=== PATIENT | male | born 1975 | race African-American/Black ===

== ENCOUNTER 2024-03-21 10:54 | Emergency (ER) | payer OTHER, SELFPAY ==
[2024-03-21] VITALS (10 sets, daily range): BP systolic 119–187; BP diastolic 78–121
--- NOTE | 2024-03-21 11:27 | ED.GENMED ---
History of Present Illness
General
Chief Complaint: Blood Pressure Problem
Source: patient
Exam Limitations: none
Time Seen by Provider: 03/21/24 11:27
Nursing documentation reviewed up to this point in time: agreed with
Travel History
Have you had any contact with someone who has COVID-19?: No
Do you have any symptoms of coronavirus? Fever > 100 degrees, chills, cough, shortness of breath, sore throat, loss of taste or smell, muscle aches, or headache?: No
History of Present Illness
History of Present Illness:
Patient is a 40-year-old male with history of ND with 2 years ago at [facility] hypertension presents to the ER for evaluation of elevated blood pressure. He reports for the past several days his blood pressure has been elevated around 170s
over 100s. He was seen at [facility] on 19 March 2 days ago and had a CAT scan and labs. He received labetalol and hydralazine while in the emergency department. He reports still his blood pressure has been elevated and he has a headache.
He normally does not get headaches. He is on carvedilol atorvastatin list and has been taking these as directed. Did call his big data developer office (DR Manoj Anand) and spoke to the nurse who instructed him to increase his carvedilol from 12.5 mg to
25 mg per he did this yesterday but did not feel well after doing that. He continues to have high blood pressure and headache. He denies any vision changes , denies any chest pain shortness of breath.
Past History
Past History
ED Past Medical History: None
ED Past Surgical History: None
Social History
Tobacco: Non-smoker
Alcohol: None
Drug: None
Personal: Single
Living: with family
Review of Systems
Review of Systems
Allergies reviewed?: Yes
All Other Systems: ROS reviewed and negative except as documented in HPI and ROS
Constitutional: Reports no symptoms; Denies fever, fatigue or chills
EENT: Reports no symptoms
Respiratory: Reports no symptoms; Denies trouble breathing
Cardiac: Denies no symptoms, chest pain, diaphoresis, palpitations or syncope
ABD/GI: Reports no symptoms
Musculoskeletal: Reports no symptoms
Skin: Reports no symptoms
Neurological: Reports headache; Denies dizzy, weakness or numbness
Psychiatric: Reports no symptoms
Phy Exam
General Physical Exam
General Presentation: no apparent distress
General age: appears stated age
General Skin: warm and dry
General Habitus: normal
General Mental: alert
General Hydration: appears well hydrated
Cardiovascular Exam
Cardiovascular Exam: regular rate/rhythm, no murmur and normal peripheral pulses
Pulmonary Exam
Pulmonary Exam: lungs clear and no respiratory distress
Neurological Exam
Neurological Exam: alert and oriented x3
Musculoskeletal Exam
Musculoskeletal Exam: full ROM
Skin Exam
Skin Exam: normal color and warm/dry
Psychiatric Exam
Psychiatric Exam: normal mood/affect
Course
Orders/Labs/Results
Orders:
Orders
03/21/24 11:02
EKG [Electrocardiogram (*1)] Urgent
Reason for Study: Hypertension, Benign
EKG- Treatment ONCE
03/21/24 12:40
Cardiac Monitoring- Treatment ONCE
IV Insert/Care/Rem.- Treatment PRN
03/21/24 12:44
Complete Blood Count/With Diff Urgent
Comprehensive Metabolic Panel Urgent
03/21/24 13:04
Ketorolac [Toradol] 15 mg IV NOW STA
Abnormal Lab Results
03/21/24
12:44
RBC 4.53 L 10^6/uL
(4.70-6.10)
Chloride 108 H mmol/L
(98-107)
03/21/24 12:44
03/21/24 12:44
Vital Signs
Initial and Last Documented VS:
Initial Vital Signs
Temp Pulse Resp BP Pulse Ox
98.4 F 81 18 163/104 98
03/21/24 10:59 03/21/24 10:59 03/21/24 10:59 03/21/24 10:59 03/21/24 10:59
Last Documented Vital Signs
Temp Pulse Resp BP Pulse Ox
98.4 F 73 16 187/121 99
03/21/24 10:59 03/21/24 14:45 03/21/24 14:45 03/21/24 14:00 03/21/24 11:52
MDM/Problems Addressed
Differential Diagnosis Includes:
not limited to hypertension, anxiety
MDM/Problems Addressed:
I spoke with DR Anand his big data developer. He was aware that patient was recently in [facility] ED and had full workup. He had normal blood work and normal CAT scan of the head. His carvedilol was increased from 12.5 mg to 25 mg daily
while in [place]. He has been taking this increased dose Dr Anand does feel that this patient has a lot of stress and anxiety also which is causing his elevated blood pressure and patient stressing a resolving blood pressure. He does
recommend just to have patient continue on his new increased dose of carvedilol and the let that kick in.
I had multiple long discussions with patient. He admits to being very anxious over his blood pressure. He is also anxious over his diet because he is not sure what to eat. He admits to eating very bad foods such as fried chicken and drinks ice
tea throughout the day but does not drink water. He is very anxious however no acute distress his monitor here several times and is constant looking at the blood pressure monitor. last BP 153/104.
As discussed with his big data developer will DC home with instructions to continue taking the increased dose of his carvedilol along with his other medicines I did recommend that patient however closely look at his diet and follow a low-salt low-fat
diet. He tells me he is going to try to get an appointment for rn dermatology. He is to follow-up with big data developer.
Acute Exacerbation and/or Progression of Chronic Illness:
htn cad,mi
*EKG
Interpreted by ED Provider?: Yes
Interpretation: abnormal
Heart Rate: 74
Rate: normal
Rhythm: sinus
Ischemia: non-specific ST changes
*Critical Care Note
Total Time (30-74mins, 75-104mins- exclusive of procedures): Not Applicable
ED Attending Note
-
Portions of this chart may have been created with voice recognition software.� Occasional wrong word or��sound alike� substitutions may have occurred due to the inherent limitations of voice recognition software.
Discharge Plan
Departure
Patient Disposition: Home (Routine Discharge)
Date of Disposition: 03/21/24
Time of Disposition: 15:28
Patient with high blood pressure during this ER visit?: Yes
Condition: Fair
Covid-19: Not Applicable
Discharge Problem:
elevated blood pressure, Headache
Instructions: High Blood Pressure (DC), Headache, Adult ED, Low-sodium diet, Low-fat diet, BLOOD PRESSURE
Prescriptions:
No Action
atorvastatin [Lipitor] 80 mg Tablet
80 mg PO DAILY
acetaminophen [Tylenol] 325 mg Tablet
650 mg PO Q4HPRN PRN (Reason: headaches)
carvedilol [Coreg] 12.5 mg Tablet
12.5 mg PO BID
lisinopril 20 mg Tablet
20 mg PO BID
aspirin 81 mg Tablet,Delayed Release (Dr/Ec)
81 mg PO DAILY
bupropion HCl [Wellbutrin XL] 150 mg Tablet Extended Release 24 Hr
150 mg PO DAILY
Beet Root Gummies
1 tab PO DAILY
Referrals:
Luis A Oakley MD [Family Provider] -
Activity Restrictions/Additional Instructions:
As discussed continue all of your blood pressure medications and other medications. Follow-up with cardiology as scheduled. Please follow a low-sodium low-fat diet.
Return if any worsening of symptoms
Interventions
Interventions:
*Risk Screen - Suicide Last Done: 03/21/24 10:59
*General Assessment Last Done: 03/21/24 10:59
*Neglect/Abuse Screening Last Done: 03/21/24 10:59
ED- Fall Risk Assessment Last Done: 03/21/24 11:52
*ED COVID-19 Vaccine History Last Done: 03/21/24 10:59
ED- Cardiac Assessment Last Done: 03/21/24 11:52
ED- Neurological Assessment Last Done: 03/21/24 11:52
ED- Pulmonary Assessment Last Done: 03/21/24 11:52
Discharge Date and Time
Print Language: BELARUSIAN
[2024-03-21 13:15] LABS: % Basophils 0.2 % (0-2); % Eosinophils 2.4 % (0-6); % Immature Granulocytes 0.2 % (0-0.5); % Monocytes 7.7 % (1.7-9.3); % Neutrophils 54.5 % (42.2-75.2); Absolute Eosinophils 0.1 10^3/uL (0-0.7); Absolute Monocytes 0.4 10^3/uL (0.1-0.6); Absolute Neutrophils 3.1 10^3/uL (1.4-6.5); Hemoglobin 13.7 g/dL (13.0-18.0); Mean Corp Hgb Conc. 34.3 g/dL (33.0-37.0); Mean Corpuscular Hgb 30.2 pg (27.0-31.0); Mean Corpuscular Volume 88.3 fL (80.0-94.0); Mean Platelet Volume 9.4 fL (7.4-10.4); Nucleated Red Blood Cells % 0 % (-); Platelet Count 226 10^3/uL (130-400); Red Blood Cell Count 4.53 10^6/uL (4.70-6.10); Red Cell Dist. Width 13.5 % (11.5-14.5); White Blood Cell Count 5.7 10^3/uL (4.8-10.8)
[2024-03-21 13:17] LABS: ALT (SGPT) 39 U/L (0-50); AST (SGOT) 26 U/L (17-59); Albumin 4.2 g/dl (3.5-5.0); Alkaline Phosphatase 55 U/L (38-126); Blood Urea Nitrogen 12 mg/dl (9-20); Calcium 9.6 mg/dl (8.4-10.2); Carbon Dioxide 28 mmol/L (22-30); Chloride 108 mmol/L (98-107); Glucose 90 mg/dl (70-99); Potassium 4.2 mmol/L (3.5-5.1); Sodium 138 mmol/L (135-145); Total Bilirubin 0.8 mg/dl (0.2-1.3); Total Protein 7.3 g/dl (6.3-8.2); eGFR > 60.00
[2024-03-21] MEDS: TORADOL 15 MG IV (13:18)
== END 2024-03-21 16:30 | disposition home or self-care (01) ==
LOC: EMR 10:54
PROVIDERS: Nurse Practitioner; EMERGENCY PHYSICIAN Emergency Medicine; FAMILY PHYSICIAN Family Medicine
DX: R51.9 Headache, unspecified (principal); I10 Essential (primary) hypertension; I25.10 Atherosclerotic heart disease of native coronary artery without angina pectoris; I25.2 Old myocardial infarction
CPT/HCPCS: 99284; 96374; 80053; 85025; 93005

== ENCOUNTER 2024-08-11 10:27 | Emergency (ER) | payer OTHER, SELFPAY ==
[2024-08-11 10:30] VITALS: BP 161/105
--- NOTE | 2024-08-11 11:47 | ED.GENMED ---
History of Present Illness
General
Chief Complaint: Back Pain
Source: patient
Time Seen by Provider: 08/11/24 11:34
History of Present Illness
History of Present Illness:
49yoM with a history of coronary artery disease s/p PCI and hypertension presenting for evaluation of back pain. He reports left upper back pain that began 4 days ago after using a new golfing technique. He states the pain feels like a muscle pain
and is worse with movement. He had some left chest discomfort a few day ago which he believes was from his back pain. He denies any chest pain currently. He went to a massage therapist and a chiropractor 2 days ago but did not have any improvement.
He has not taken anything OTC for his symptoms. He denies any shortness of breath or paresthesias.
Past History
Past History
ED Past Medical History: None
ED Past Surgical History: None
Social History
Tobacco: Non-smoker
Alcohol: None
Drug: None
Personal: Single
Living: with family
Phy Exam
General Physical Exam
General Presentation: well appearing and no apparent distress
General age: appears stated age
General Skin: warm and dry
General Habitus: normal
General Mental: alert
ENT Exam
ENT Exam: normocephalic
Cardiovascular Exam
Cardiovascular Exam: regular rate/rhythm and no murmur
Pulmonary Exam
Pulmonary Exam: lungs clear, no respiratory distress, no rales, no crackles, no rhonchi and no wheezing
Rock Coma Scale
Eye Opening: Spontaneous
Verbal Response: Oriented
Motor Response: Obeys Commands
GCS Total Score: 15
Musculoskeletal Exam
Musculoskeletal Exam: other (No reproducible tenderness in thoracic region. No skin changes. )
Skin Exam
Skin Exam: normal color and warm/dry
Psychiatric Exam
Psychiatric Exam: normal mood/affect
Course
Orders/Labs/Results
Orders:
Orders
08/11/24 11:45
Electrocardiogram (*1) Urgent
Reason for Study: Chest Pain
EKG- Treatment ONCE
CR Chest - 2 Views Urgent
Comment:
Reason For Exam: L upper back pain
Vital Signs
Initial and Last Documented VS:
Initial Vital Signs
Temp Pulse Resp BP Pulse Ox
98.8 F 77 18 161/105 97
08/11/24 10:30 08/11/24 10:30 08/11/24 10:30 08/11/24 10:30 08/11/24 10:30
Last Documented Vital Signs
Temp Pulse Resp BP Pulse Ox
98.8 F 73 18 156/106 99
08/11/24 10:30 08/11/24 13:44 08/11/24 10:30 08/11/24 13:44 08/11/24 13:44
MDM/Problems Addressed
Differential Diagnosis Includes:
49yoM here with L upper back pain x 4 days after using a new golf technique. Pain worse with movement. He did have chest pain a few days ago but none currently. He is well appearing in no distress. He is afebrile and hemodynamically stable. There is
no reproducible tenderness on exam. Differential diagnosis includes but is not limited to: muscular strain, less likely fracture, ACS, lung pathology
Initial ED plan: Check EKG and CXR.
*EKG
Interpreted by ED Provider?: Yes
EKG Intrepretation Date: 08/11/24
Heart Rate: 75
Rate: normal
Rhythm: sinus
[place]: normal axis
Interval: normal interval
QRS Pattern: normal QRS
Ischemia: other (Nonspecific T wave changes. Appears unchanged 03/21/24. )
*Critical Care Note
Total Time (30-74mins, 75-104mins- exclusive of procedures): Not Applicable
Update Note
Update Note:
EKG shows NSR with nonspecific T wave changes which appears unchanged from prior EKG. CXR is clear. Presentation consistent with a muscular strain. He has not taken anything OTC for his pain. Will prescribe ibuprofen. Also advised heat and massage.
Advised f/u with PCP and ED return precautions discussed. He expressed understanding and is agreeable to plan. He was discharged in stable condition.
ED Attending Note
-
Portions of this chart may have been created with voice recognition software.� Occasional wrong word or��sound alike� substitutions may have occurred due to the inherent limitations of voice recognition software.
Discharge Plan
Departure
Patient Disposition: Home (Routine Discharge)
Date of Disposition: 08/11/24
Time of Disposition: 13:27
Patient with high blood pressure during this ER visit?: Yes
Discharge Problem:
Strain of muscle at thorax level
Instructions: Muscle Strain (DC)
Prescriptions:
New
ibuprofen 600 mg tablet
600 mg PO Q6H PRN (Reason: Pain) Qty: 20 0RF
No Action
atorvastatin [Lipitor] 80 mg Tablet
80 mg PO DAILY
acetaminophen [Tylenol] 325 mg Tablet
650 mg PO Q4HPRN PRN (Reason: headaches)
carvedilol [Coreg] 12.5 mg Tablet
12.5 mg PO BID
lisinopril 20 mg Tablet
20 mg PO BID
aspirin 81 mg Tablet,Delayed Release (Dr/Ec)
81 mg PO DAILY
bupropion HCl [Wellbutrin XL] 150 mg Tablet Extended Release 24 Hr
150 mg PO DAILY
Beet Root Gummies
1 tab PO DAILY
Referrals:
Luis A Oakley MD [Family Provider] -
Activity Restrictions/Additional Instructions:
Apply heat and massage affected area. Take ibuprofen as prescribed. You may take Tylenol 650mg every 6 hours as needed for pain.
Please follow-up with your family doctor next week. Return to the ER with any new or worsening symptoms.
Interventions
Interventions:
*Risk Screen - Suicide Last Done: 08/11/24 10:31
*General Assessment Last Done: 08/11/24 10:31
*Neglect/Abuse Screening Last Done: 08/11/24 10:31
ED- Fall Risk Assessment Last Done: 08/11/24 12:00
*ED COVID-19 Vaccine History Last Done: 08/11/24 11:48
*Nursing Disposition Last Done: 08/11/24 13:50
ED-Musculoskeletal Assessment Last Done: 08/11/24 11:48
Discharge Date and Time
Discharge Date/Time: 08/11/24 13:50
Print Language: SLOVAK
[2024-08-11 11:53] VITALS: BMI 32.5
--- NOTE | 2024-08-11 12:18 | EDRN ---
Pt stated to NATALIA Stubbs that he has had some intermittent chest pain that he thinks is related to his upper back pain though he has had an PA in the past so EKG was ordered.
[2024-08-11 12:31] VITALS: BP 140/103
--- NOTE | 2024-08-11 13:40 | EDRN ---
Pt said to me that he cannot take ibuprofen as he is on a blood thinner. Pt requested steroids for his back pain.
[2024-08-11 13:44] VITALS: BP 156/106
--- NOTE | 2024-08-11 13:45 | EDRN ---
Candace FISHER was informed and said pt is only on ASA so can take ibuprofen and does not need steroids for his present M/S pain.
== END 2024-08-11 13:50 | disposition home or self-care (01) ==
LOC: EMR 10:27
PROVIDERS: EMERGENCY PHYSICIAN Emergency Medicine; FAMILY PHYSICIAN Family Medicine
DX: S29.012A Strain of muscle and tendon of back wall of thorax, initial encounter (principal); X58.XXXA Exposure to other specified factors, initial encounter; I10 Essential (primary) hypertension; I25.10 Atherosclerotic heart disease of native coronary artery without angina pectoris; Z95.5 Presence of coronary angioplasty implant and graft
CPT/HCPCS: 99283; 71046; 93005